=== PATIENT | male | born 1960 ===

== ENCOUNTER → 2021-10-05 14:40 | Outpatient (CLI) | payer BC, SELFPAY | PROVIDERS: PCP Family Medicine; Visit Provider Urology | DX: N13.39 Other hydronephrosis (principal) | CPT/HCPCS: 87086 ==

== ENCOUNTER → 2021-10-07 15:06 | Outpatient (CLI) | payer BC, SELFPAY | PROVIDERS: Visit Provider Urology | DX: Z01.812 Encounter for preprocedural laboratory examination (principal); Z11.52 Encounter for screening for COVID-19; N13.30 Unspecified hydronephrosis | CPT/HCPCS: C9803; U0003; U0005 ==